=== PATIENT | female | born 1995 | race American Indian/Alaskan Native ===

== ENCOUNTER 2017-07-24 17:54 | Emergency (ER) | payer MEDICAID ==
[2017-07-24 17:54] VITALS: BMI 30.9
[2017-07-24] MEDS ORDERED: Sodium Chloride 0.9% 1,000 ML IV STA (18:25)
--- NOTE | 2017-07-24 18:25 | ED PDOC ---
Arrival/HPI - General Historian: Patient <Emperatriz Dinh A - Last Filed: 07/24/17 23:03> <Carlos A Aparicio - Last Filed: 07/25/17 16:57> - General Time Seen by Provider: 07/24/17 18:17 - History of Present Illness Narrative History of Present Illness (Text): 07/24/17 18:22 21yo morbidly obese female with no PMHx who present with complaint of burning epigastric abdominal pain, nausea, nonbloody/nonbilious vomiting x 1, and diarrhea since this morning. Notes symptoms started after eating breakfast today. She denies previous history of similar symptoms. denies chest pain, fever , chills, urinary symptoms, hematemesis, hematochezia, sick contact, any other complaint. (Emperatriz Dinh A) Past Medical History - Provider Review Nursing Documentation Reviewed: Yes - Infectious Disease Hx of Infectious Diseases: None - Tetanus Immunization Tetanus Immunization: Up to Date - Past Medical History Past Medical History: No Previous - Psychiatric Hx Depression: No Hx Emotional Abuse: No Hx Physical Abuse: No Hx Substance Use: No - Past Surgical History Past Surgical History: No Previous - Suicidal Assessment Feels Threatened In Home Enviroment: No <Emperatriz Dinh A - Last Filed: 07/24/17 23:03> Family/Social History - Physician Review Nursing Documentation Reviewed: Yes Family/Social History: Unknown Family HX Hx Alcohol Use: Yes Hx Substance Use: No Hx Substance Use Treatment: No <Emperatriz Dinh A - Last Filed: 07/24/17 23:03> Allergies/Home Meds <Emperatriz Dinh A - Last Filed: 07/24/17 23:03> <Carlos A Aparicio - Last Filed: 07/25/17 16:57> Allergies/Adverse Reactions: Allergies No Known Allergies Allergy (Verified 07/24/17 18:22) Review of Systems - Physician Review All systems were reviewed & negative as marked: Yes - Review of Systems Constitutional: Normal Eyes: Normal ENT: Normal Respiratory: Normal Cardiovascular: Normal Gastrointestinal: Abdominal Pain, Diarrhea, Nausea, Vomiting. absent: Constipation, Hematochezia, Hematemesis Genitourinary Female: Normal Musculoskeletal: Normal Skin: Normal Neurological: Normal Endocrine: Normal Hemo/Lymphatic: Normal Psychiatric: Normal <Emperatriz Dinh A - Last Filed: 07/24/17 23:03> Physical Exam Vital Signs Reviewed: Yes Temperature: Afebrile Blood Pressure: Normal Pulse: Regular Respiratory Rate: Normal Appearance: Positive for: Well-Appearing, Non-Toxic, Comfortable Pain Distress: None Mental Status: Positive for: Alert and Oriented X 3 - Systems Exam Head: Present: Atraumatic, Normocephalic Pupils: Present: PERRL Extroacular Muscles: Present: EOMI Conjunctiva: Present: Normal Mouth: Present: Moist Mucous Membranes Neck: Present: Normal Range of Motion Respiratory/Chest: Present: Clear to Auscultation, Good Air Exchange. No: Respiratory Distress, Accessory Muscle Use Cardiovascular: Present: Regular Rate and Rhythm, Normal S1, S2. No: Murmurs Abdomen: Present: Tenderness (Epigastric), Normal Bowel Sounds, Other (Soft). No: Distention, Peritoneal Signs, Rebound, Guarding, McBurney's Point Tender, Rovsing's Sign Present Back: Present: Normal Inspection Upper Extremity: Present: Normal Inspection. No: Cyanosis, Edema Lower Extremity: Present: Normal Inspection. No: Edema Neurological: Present: GCS=15, CN II-XII Intact, Speech Normal Skin: Present: Warm, Dry, Normal Color. No: Rashes Psychiatric: Present: Alert, Oriented x 3, Normal Insight, Normal Concentration <Emperatriz Dinh A - Last Filed: 07/24/17 23:03> Vital Signs Temp Pulse Resp BP Pulse Ox 07/24/17 23:02 83 16 126/84 100 07/24/17 21:35 87 16 139/79 97 07/24/17 18:21 97.4 F L 98 H 18 145/97 H 100 Medical Decision Making <Emperatriz Dinh A - Last Filed: 07/24/17 23:03> <Carlos A Aparicio - Last Filed: 07/25/17 16:57> ED Course and Treatment: 07/24/17 23:04 PT presented for stated history. On r evaluation s/p medication was given, she states her pain improved. Lab noted leukocytosis which is likely viral enteritis. Elevated BS was also noted. PT denied history of DM. Repeat FS was 160 after hydration and Insulin was given. She have a PMD and was admitted to f/ u wit her PMD for further evaluation. Rx of Metformin 500mg, pepcid and Zofran was given. She was Advised to follow BRAT diet and TRT ED for any new or worsening symptoms. (Emperatriz Dinh) - Lab Interpretations Lab Results: 07/24/17 18:50 07/24/17 18:50 Lab Results 07/24/17 18:50: Sodium 136, Potassium 4.4, Chloride 99, Carbon Dioxide 27, Anion Gap 14, BUN 13, Creatinine 0.7, Est GFR ( Amer) > 60, Est GFR (Non- Af Amer) > 60, Random Glucose 318 H* D, Calcium 9.5, Total Bilirubin 0.7, AST 34 , ALT 43, Alkaline Phosphatase 74, Total Protein 7.9, Albumin 4.0, Globulin 3.9 , Albumin/Globulin Ratio 1.0 L, Lipase 186 07/24/17 18:50: PT 11.4, INR 1.04, APTT 27.8 07/24/17 18:50: WBC 13.0 H, RBC 4.85, Hgb 12.9, Hct 38.6, MCV 79.6 L, MCH 26.6, MCHC 33.4, RDW 13.5, Plt Count 275, MPV 9.3, Gran % 77.7 H, Lymph % (Auto) 12.2 L, [place] % (Auto) 8.4 H, Eos % (Auto) 1.5, Baso % (Auto) 0.2, Gran # 10.09 H, Lymph # 1.6, [place] # 1.1 H, Eos # 0.2, Baso # 0.03 - Medication Orders Current Medication Orders: Discontinued Medications Famotidine (Pepcid) 20 mg IVP STAT STA Stop: 07/24/17 18:26 Last Admin: 07/24/17 19:07 Dose: 20 mg IVP Administration Document 07/24/17 19:07 OCS (Rec: 07/24/17 19:16 OCS [id number]) Charges for Administration # of IVP Administrations 1 Sodium Chloride (Sodium Chloride 0.9%) 1,000 mls @ 1,000 mls/hr IV .Q1H STA Stop: 07/24/17 19:24 Last Admin: 07/24/17 19:16 Dose: 1,000 mls/hr eMAR Start Stop Document 07/24/17 19:16 OCS (Rec: 07/24/17 19:16 OCS [id number]) Intravenous Solution Start Date 07/24/17 Start Time 19:00 End Date 07/24/17 End time 20:00 Total Infusion Time 60 Insulin Human Regular (Humulin R Med) 7 units IV ONCE STA PRN Reason: Protocol Stop: 07/24/17 20:08 Last Admin: 07/24/17 20:29 Dose: 7 units eMAR Start Stop Document 07/24/17 20:29 OCS (Rec: 07/24/17 20:29 OCS [id number]) Intravenous Solution Start Date 07/24/17 Start Time 20:29 MAR Blood Glucose Document 07/24/17 20:29 OCS (Rec: 07/24/17 20:29 [id number] Blood Glucose Finger Stick Blood Glucose (70-120) 318 Ondansetron HCl (Zofran Inj) 4 mg IVP STAT STA Stop: 07/24/17 18:26 Last Admin: 07/24/17 19:16 Dose: 4 mg IVP Administration Document 07/24/17 19:16 OCS (Rec: 07/24/17 19:17 OCS [id number]) Charges for Administration # of IVP Administrations 1 - PA / COMPLIANCE DIRECTOR / Resident Statement / has reviewed & agrees with the documentation as recorded. <Carlos A Aparicio - Last Filed: 07/25/17 16:57> Disposition/Present on Arrival - Present on Arrival Any Indicators Present on Arrival: No History of DVT/PE: No History of Uncontrolled Diabetes: No Urinary Catheter: No History Surgical Site Infection Following: None - Disposition Have Diagnosis and Disposition been Completed?: Yes Disposition Time: 21:50 Patient Plan: Discharge <Emperatriz Dinh - Last Filed: 07/24/17 23:03> <Carlos A Aparicio - Last Filed: 07/25/17 16:57> - Disposition Diagnosis: Abdominal pain, Diabetes mellitus, new onset, Vomiting Disposition: HOME/ ROUTINE Condition: STABLE Discharge Instructions (ExitCare): Abdominal Pain (ED), Hyperglycemia, Non- Diabetic (ED) Additional Instructions: Follow up with your doctor Follow BRAT diet (Banana, plain rice, tea, crackers) Return to ED for any new or worsening symptoms Prescriptions: Famotidine [Pepcid] 20 mg PO BID #20 tab metFORMIN [glucOPHAGE] 500 mg PO BID #20 tab Ondansetron ODT [Zofran ODT] 4 mg PO Q6 #7 odt Referrals: Yeni Mario, [Primary Care Provider] - [place] up [place] [facility] [place] [facility] [place] - Follow up with primary Forms: [employer] (Latvian), WORK NOTE
[2017-07-24 18:54] VITALS: TEMP 97.4
[2017-07-24 19:07] LABS: BASO # 0.03 K/mm3 (0.0-2.0); BASO % 0.2 % (0.0-3.0); EOS # 0.2 (0.0-0.7); EOS % 1.5 % (1.5-5.0); GRAN # 10.09 (1.4-6.5); GRAN % 77.7 % (50.0-68.0); HEMATOCRIT 38.6 % (36.0-48.0); LYMPH # 1.6 (1.2-3.4); LYMPH % 12.2 % (22.0-35.0); MEAN CELL VOLUME 79.6 fl (80.0-105.0); MEAN CORPUSCULAR HEMOGLOBIN 26.6 pg (25.0-35.0); MEAN CORPUSCULAR HGB CONC 33.4 g/dl (31.0-37.0); MEAN PLATELET VOLUME 9.3 fl (7.0-11.0); MONO # 1.1 (0.1-0.6); MONO % 8.4 % (1.0-6.0); RED CELL DISTRIBUTION WIDTH 13.5 % (11.5-14.5)
[2017-07-24 19:26] LABS: INR 1.04 (0.93-1.08); PARTIAL THROMBOPLASTIN TIME 27.8 Seconds (25.1-36.5)
[2017-07-24 19:56] LABS: BLOOD UREA NITROGEN 13 mg/dL (7-21); CALCIUM 9.5 mg/dL (8.4-10.5); CARBON DIOXIDE 27 mmol/L (21-33); CHLORIDE 99 mmol/L (98-107); GFR AFRICAN-AMERICAN > 60; POTASSIUM 4.4 mmol/L (3.6-5.0); SODIUM 136 mmol/L (132-148)
[2017-07-24 19:57] LABS: ALKALINE PHOSPHATASE 74 U/L (38-126); ALT/SGPT 43 U/L (7-56); AST/SGOT 34 U/L (14-36); BILIRUBIN,TOTAL 0.7 mg/dL (0.2-1.3); LIPASE 186 U/L (23-300); TOTAL PROTEIN 7.9 g/dL (5.8-8.3)
[2017-07-24 19:59] LABS: GLUCOSE,RANDOM 318 mg/dL (70-110)
[2017-07-24] MEDS ORDERED: Insulin Reg-MEDIUM-Coverage IV STA (20:07)
[2017-07-24] MEDS ORDERED: Insulin Regular 1 UNITS/0.01 ML ML ONE (20:24)
[2017-07-24 21:40] VITALS: RESP 16
[2017-07-24 23:03] VITALS: BP 126/84; PULSE 83; O2SAT 100
== END 2017-07-24 23:07 | disposition home or self-care (01) ==
LOC: ED 17:54
DX: E11.9 Type 2 diabetes mellitus without complications (principal); R11.10 Vomiting, unspecified; R10.9 Unspecified abdominal pain
CPT/HCPCS: 80053; 82948; 83690; 85025; 85610; 85730; 96361; 96374; 96375; 99284; J2405; J7040

== ENCOUNTER 2018-04-16 15:34 | Emergency (ER) | payer MEDICAID ==
[2018-04-16 15:34] VITALS: BMI 30.9
[2018-04-16 15:46] VITALS: RESP 18
--- NOTE | 2018-04-16 16:18 | ED PDOC ---
Arrival/HPI - History of Present Illness Time/Duration: < week Symptom Onset: Gradual Symptom Course: Unchanged Quality: Other (Sharp) Activities at Onset: Rest <Emerson Maguire - Last Filed: 04/16/18 18:01> <Suhas Alberto - Last Filed: 04/21/18 17:47> - General Chief Complaint: ENT Problem Time Seen by Provider: 04/16/18 15:37 - History of Present Illness Narrative History of Present Illness (Text): 04/16/18 16:03 PGY-[address] Alberto Ms. Branch is a 22 year old with history of recent DM diagnosis who presents with ear pain and missed period. Patient reports that she has had intermittent ear pains for about one week along the internal surface of her left ear. Pt denies having any sinus congestion, fever, cough. She denies any recent swimming or sick contacts. In addition, patient has been having sharp lower abdominal pain for about the past two days. She denies any bleeding or discharge. Her last period was from January 17-January 21. She denies any bowel or bladder symptoms including constipation, diarrhea, nausea, vomiting, dysuria, increased frequency, and hematuria. Patient had a positive test in the ED, was unaware of her until this time. Her first was an uncomplicated vaginal . The patient was diagnosed with DM about 2-3 months ago at [facility] ED and was prescribed Metformin, but has not taken any medication. (Emerson Maguire) Past Medical History - Provider Review Nursing Documentation Reviewed: Yes - Infectious Disease Hx of Infectious Diseases: None - Tetanus Immunization Tetanus Immunization: Up to Date - Past Medical History Past Medical History: No Previous - Psychiatric Hx Depression: No Hx Emotional Abuse: No Hx Physical Abuse: No Hx Substance Use: No - Past Surgical History Past Surgical History: No Previous - Suicidal Assessment Feels Threatened In Home Enviroment: No <Emerson Maguire - Last Filed: 04/16/18 18:01> Family/Social History Family/Social History: No Known Family HX Smoking Status: Never Smoked Hx Alcohol Use: Yes Frequency of alcohol use: Socially Hx Substance Use: No Hx Substance Use Treatment: No <Emerson Maguire - Last Filed: 04/16/18 18:01> Allergies/Home Meds <Emerson Maguire - Last Filed: 04/16/18 18:01> <Suhas Alberto - Last Filed: 04/21/18 17:47> Allergies/Adverse Reactions: Allergies No Known Allergies Allergy (Verified 04/16/18 15:43) Review of Systems - Review of Systems Constitutional: Normal. absent: Fatigue, Fevers Eyes: Normal. absent: Vision Changes, Eye Pain ENT: absent: Hearing Changes, Sore Throat, Rhinorrhea, Sinus Congestion Respiratory: Normal. absent: SOB, Cough, Wheezing Cardiovascular: Normal. absent: Chest Pain, Edema Gastrointestinal: Abdominal Pain (+Lower abdominal pain). absent: Constipation , Diarrhea, Nausea, Vomiting, Hematochezia Genitourinary Female: Other (+FDLMP January 17). absent: Dysuria, Frequency, Hematuria, Vaginal Bleeding, Vaginal Discharge Musculoskeletal: absent: Arthralgias, Back Pain Skin: Normal. absent: Rash, Pruritis Neurological: Headache (+occasional headaches). absent: Dizziness, Speech Changes Endocrine: absent: Polyuria, Polydipsia <Emerson Maguire - Last Filed: 04/16/18 18:01> Physical Exam Vital Signs Reviewed: Yes Temperature: Afebrile Blood Pressure: Normal Pulse: Regular Respiratory Rate: Normal Appearance: Positive for: Well-Appearing, Comfortable. No: Non-Toxic Pain Distress: Mild Mental Status: Positive for: Alert and Oriented X 3 - Systems Exam Head: Present: Atraumatic, Normocephalic Pupils: Present: PERRL. No: Sluggish Extroacular Muscles: Present: EOMI Conjunctiva: Present: Normal. No: Injected, Icteric Ears: Present: Normal, NORMAL TM, Normal Canal. No: Erythema, TM Bulging, Fluid , TM Perf Mouth: Present: Moist Mucous Membranes, Normal Lips, Normal Tounge, Normal Teeth Pharnyx: Present: Normal. No: ERYTHEMA, EXUDATE, Peritonsilar Swelling Nose (External): Present: Atraumatic. No: Abrasion, Contusion Neck: Present: Normal Range of Motion. No: JVD Respiratory/Chest: Present: Clear to Auscultation, Good Air Exchange. No: Respiratory Distress, Accessory Muscle Use, Wheezes, Decreased Breath Sounds, Rhonchi Cardiovascular: Present: Regular Rate and Rhythm, Normal S1, S2. No: Murmurs Abdomen: Present: Normal Bowel Sounds. No: Tenderness, Distention, Peritoneal Signs, Rebound, Guarding Upper Extremity: Present: Normal Inspection, NORMAL PULSES. No: Cyanosis, Edema , Tenderness, Swelling Lower Extremity: Present: Normal Inspection, NORMAL PULSES. No: Edema, Cyanosis , Tenderness, Swelling, Erythema, Deformity Neurological: Present: GCS=15, CN II-XII Intact, Speech Normal, Motor Func Grossly Intact Skin: Present: Warm, Dry, Normal Color. No: Rashes Psychiatric: Present: Alert, Oriented x 3, Normal Insight, Normal Concentration <Emerson Maguire - Last Filed: 04/16/18 18:01> - Systems Exam Genitourinary/Pelvic Exam: Present: Normal External Genitalia, Cervical os Closed. No: Vaginal Discharge, Vaginal Bleeding, Vaginal Lesions, Adenexal Tenderness, Adenexal Mass, Cervical Motion Tendernes, Odor <Suhas Alberto - Last Filed: 04/21/18 17:47> Vital Signs Temp Pulse Resp BP Pulse Ox 04/16/18 18:13 98.6 F 72 18 118/79 99 04/16/18 17:34 98.6 F 78 18 123/78 98 04/16/18 15:41 98.3 F 100 H 18 135/82 99 Medical Decision Making <Emerson Maguire - Last Filed: 04/16/18 18:01> <Suhas Alberto - Last Filed: 04/21/18 17:47> ED Course and Treatment: 04/16/18 16:42 1) Ear pain, Non-infectious * Does not appear to be infected based on physical findings and clinical presentation 2) * POC urine HCG test was positive * UA * CBC w dif * CMP * Type and screen * Beta quant 04/16/18 18:06 * Nitrofurantoin 100mg PO stat for abdominal pain in (Emerson Maguire) 04/16/18 16:49 Patient is a 22 year old female presenting to the Emergency department complaining of ear pain and a missed menstrual period. Patient Seen With Resident: In agreement with resident note which contains more details about the patient. Patient was seen and evaluated with resident. Came up with plan and treatment together. Patient's ear did not have OM or OE. There a possible pimple in the ear canal that does not need abx. TVSono complted and explained to patient. Also UA showed UTI so will tx with Nitrofurantoin. Patient was advised to make sure she follow up with OBGYN and to return to the ED if symptoms worsen or any other concern. (Suhas Alberto) - Lab Interpretations Microbiology Results: Microbiology Results 04/16/18 19:21 Urine,Clean Catch Urine Culture - Final No Growth (<1,000 CFU/ML) Lab Results: 04/16/18 16:40 04/16/18 16:40 Lab Results 04/16/18 18:00: Blood Type Confirm A POSITIVE 04/16/18 16:40: Beta HCG, Quant 87869.00 H 04/16/18 16:40: Sodium 138, Potassium 3.8, Chloride 103, Carbon Dioxide 25, Anion Gap 13, BUN 7, Creatinine 0.7, Est GFR ( Amer) > 60, Est GFR (Non- Af Amer) > 60, Random Glucose 167 H, Calcium 9.1, Total Bilirubin 0.2, AST 16, ALT 11, Alkaline Phosphatase 50, Total Protein 7.1, Albumin 3.4, Globulin 3.7, Albumin/Globulin Ratio 0.9 L 04/16/18 16:40: Urine Color Yellow, Urine Appearance Clear, Urine pH 6.0, Ur Specific [place] >= 1.030, Urine Protein >=300 H, Urine Glucose (UA) Negative, Urine Ketones Negative, Urine Blood Trace-lysed H, Urine Nitrate Negative, Urine Bilirubin Negative, Urine Urobilinogen 0.2, Ur Leukocyte Esterase Negative , Urine RBC 0 - 2, Urine WBC 5 - 10, Ur Epithelial Cells 6 - 8, Amorphous Sediment Few, Urine Bacteria Occ 04/16/18 16:40: WBC 8.5 D, RBC 4.29, Hgb 11.6 L, Hct 33.5 L, MCV 78.1 L, MCH 27.0, MCHC 34.6, RDW 12.6, Plt Count 305, MPV 8.9, Gran % 65.2, Lymph % (Auto) 27.9, [place] % (Auto) 5.8, Eos % (Auto) 0.9 L, Baso % (Auto) 0.2, Gran # 5.50, Lymph # (Auto) 2.4, [place] # (Auto) 0.5, Eos # (Auto) 0.1, Baso # (Auto) 0.02 04/16/18 16:40: Blood Type A POSITIVE, Antibody Screen Negative, BBK History Checked No verified bt - RAD Interpretation Narrative RAD Interpretations (Text): 04/16/18 18:01 US Transvaginal: Single live intrauterine at 11 weeks. (Emerson Maguire) Radiology Orders: 04/16/18 16:18 OB TRANSVAGINAL [US] Stat - Medication Orders Current Medication Orders: Discontinued Medications Nitrofurantoin Macrocrystals (Macrobid) 100 mg PO STAT STA PRN Reason: Protocol Stop: 04/16/18 17:59 Last Admin: 04/16/18 18:07 Dose: 100 mg <Emerson Maguire - Last Filed: 04/16/18 18:01> - PA / VOCATIONAL DIRECTOR / Resident Statement MD/DO has reviewed & agrees with the documentation as recorded. MD/ has examined the patient and agrees with the treatment plan. - Scribe Statement The provider has reviewed the documentation as recorded by the Scribe <Suhas Alberto - Last Filed: 04/21/18 17:47> - Scribe Statement Lorna Zacarias All medical record entries made by the Scribe were at my direction and personally dictated by me. I have reviewed the chart and agree that the record accurately reflects my personal performance of the history, physical exam, medical decision making, and the department course for this patient. I have also personally directed, reviewed, and agree with the discharge instructions and disposition. (Suhas Alberto) Disposition/Present on Arrival - Present on Arrival History of DVT/PE: No History of Uncontrolled Diabetes: No Urinary Catheter: No History of Decub. Ulcer: No History Surgical Site Infection Following: None <Emerson Maguire - Last Filed: 04/16/18 18:01> - Present on Arrival Any Indicators Present on Arrival: No - Disposition Have Diagnosis and Disposition been Completed?: Yes Disposition Time: 18:13 Patient Plan: Discharge <Suhas Alberto - Last Filed: 04/21/18 17:47> - Disposition Diagnosis: , Threatened , UTI (urinary tract infection) Disposition: HOME/ ROUTINE Condition: IMPROVED Discharge Instructions (ExitCare): Urinary Tract Infections in Adults, - The Second Month Additional Instructions: LELA BRANCH, thank you for letting us take care of you today. Your provider was Suhas Alberto DO and you were treated for , Ear Pain, UTI. The emergency medical care you received today was directed at your acute symptoms. If you were prescribed any medication, please fill it and take as directed. It may take several days for your symptoms to resolve. Return to the Emergency Department if your symptoms worsen, do not improve, or if you have any other problems. Please contact your doctor or call one of the physicians/clinics you have been referred to that are listed on the Patient Visit Information form that is included in your discharge packet. Bring any paperwork you were given at discharge with you along with any medications you are taking to your follow up visit. Our treatment cannot replace ongoing medical care by a primary care provider outside of the emergency department. Thank you for allowing the [facility] team to be part of your care today. If you had an X-Ray or CT scan: A Radiologist will review the ED reading if any change in treatment is needed we will contact you. If you had a blood, urine, or wound culture: It will take several days for the results, if any change in treatment is needed we will contact you. If you had an STI test: It will take 48 hours for the results. Please call after 1 week if you have not heard back. Prescriptions: Nitrofurantoin Macrocrystals [Macrobid] 100 mg PO BID #10 cap Forms: [employer] ([place]), WORK NOTE
[2018-04-16 17:12] LABS: ALB/GLOB RATIO 0.9 (1.1-1.8); ALBUMIN 3.4 g/dL (3.0-4.8); ALT/SGPT 11 U/L (7-56); AST/SGOT 16 U/L (14-36); BLOOD UREA NITROGEN 7 mg/dL (7-21); CALCIUM 9.1 mg/dL (8.4-10.5); GFR NON-AFRICAN AMERICAN > 60
[2018-04-16 17:16] LABS: BASO # 0.02 K/mm3 (0.0-2.0); BASO % 0.2 % (0.0-3.0); EOS # 0.1 (0.0-0.7); EOS % 0.9 % (1.5-5.0); GRAN # 5.5 (1.4-6.5); GRAN % 65.2 % (50.0-68.0); HEMOGLOBIN 11.6 g/dL (12.0-16.0); LYMPH # 2.4 (1.2-3.4); LYMPH % 27.9 % (22.0-35.0); MEAN CELL VOLUME 78.1 fl (80.0-105.0); MEAN CORPUSCULAR HGB CONC 34.6 g/dl (31.0-37.0); MEAN PLATELET VOLUME 8.9 fl (7.0-11.0); MONO # 0.5 (0.1-0.6); MONO % 5.8 % (1.0-6.0); RBC 4.29 10^6/uL (3.5-6.1); RED CELL DISTRIBUTION WIDTH 12.6 % (11.5-14.5); WHITE BLOOD COUNT 8.5 10^3/ul (4.5-11.0)
[2018-04-16 17:17] LABS: URINE APPEARANCE CLEAR (CLEAR); URINE BILIRUBIN NEGATIVE (NEGATIVE); URINE BLOOD TRACE-LYSED (NEGATIVE); URINE COLOR YELLOW (YELLOW); URINE GLUCOSE (UA) NEGATIVE (NEGATIVE); URINE LEUKOCYTE ESTERASE NEGATIVE Leu/uL (NEGATIVE); URINE PROTEIN >=300 mg/dL (<30 mg/dL); URINE UROBILINOGEN 0.2 E.U./dL (<1 E.U./dL)
[2018-04-16 17:45] LABS: URINE RBC 0 - 2 /hpf (0-2)
[2018-04-16 17:46] LABS: URINE AMORPHOUS SEDIMENT FEW; URINE BACTERIA OCC (NEG)
--- NOTE | 2018-04-16 17:48 | US ---
Date of service: 04/16/2018 PROCEDURE: OB Pelvic Ultrasound HISTORY: Positive urine test COMPARISON: None available. FINDINGS: UTERUS: Single Live intrauterine gestation. CRL measures 5.1 cm equivalent to 11 weeks and 6 days gestatioin Gestational sac diameter measures 5.1 cm equivalent to 11 weeks and 0 day gestation age (Ultrasound estimated): Eleven weeks and 3 days Date of delivery (Ultrasound estimated) : 11/02/2018 Heart rate: 160 bpm. Ijeoma-gestational hemorrhage: None. Uterus measures 10.3 x 7.1 x 8.6 cm. Anteverted. No mass Placenta is posterior. CERVIX: Long and closed. No cervical abnormality seen. RIGHT OVARY: Measures 2.6 x 1.8 x 1.7 cm. No mass. Normal flow. LEFT OVARY: Measures 2.3 x 1.7 x 2.1 cm. No mass. Normal flow. FREE FLUID: None. OTHER FINDINGS: None. IMPRESSION: Single live intrauterine gestation with mean gestational age of 11 weeks and 3 days. The estimated date of delivery by ultrasound is 11/02/2018.
[2018-04-16 18:13] VITALS: TEMP 98.6
[2018-04-16 18:14] VITALS: BP 118/79; PULSE 72; O2SAT 99
== END 2018-04-16 18:13 | disposition home or self-care (01) ==
LOC: ED 15:34
DX: O20.0 Threatened abortion (principal); O23.41 Unspecified infection of urinary tract in pregnancy, first trimester; Z3A.11 11 weeks gestation of pregnancy

== ENCOUNTER 2018-04-23 11:57 | Emergency (ER) | payer MEDICAID ==
[2018-04-23 11:57] VITALS: BMI 30.9
[2018-04-23 12:12] VITALS: RESP 18; O2SAT 100
--- NOTE | 2018-04-23 12:23 | ED PDOC ---
Arrival/HPI - General Chief Complaint: ENT Problem Time Seen by Provider: 04/23/18 12:00 Historian: Patient - History of Present Illness Narrative History of Present Illness (Text): 04/23/18 12:16 22 year old female, whose past medical history includes DM, A0, who presents to the ED complaining of left ear pain x 1 week. Patient notes pain started radiating to neck on the left side yesterday. . Patient describes the pain as shooting and sharp. She started to have tooth pain to her left posterior tooth. Patient denies any fever, chills, drainage, pain with swallowing, or any other complaints. PMD: None Time/Duration: 1 week Symptom Onset: Gradual Symptom Course: Unchanged Activities at Onset: Light Context: Home Past Medical History - Provider Review Nursing Documentation Reviewed: Yes - Infectious Disease Hx of Infectious Diseases: None - Tetanus Immunization Tetanus Immunization: Up to Date - Past Medical History Past Medical History: No Previous - Endocrine/Metabolic Hx Diabetes Mellitus Type 2: Yes - Psychiatric Hx Depression: No Hx Emotional Abuse: No Hx Physical Abuse: No Hx Substance Use: No - Past Surgical History Past Surgical History: No Previous - Suicidal Assessment Feels Threatened In Home Enviroment: No Family/Social History - Physician Review Nursing Documentation Reviewed: Yes Family/Social History: Unknown Family HX Smoking Status: Never Smoked Hx Alcohol Use: Yes Frequency of alcohol use: Socially Hx Substance Use: No Hx Substance Use Treatment: No Allergies/Home Meds Allergies/Adverse Reactions: Allergies No Known Allergies Allergy (Verified 04/23/18 12:12) Review of Systems - Physician Review All systems were reviewed & negative as marked: Yes - Review of Systems Constitutional: Normal Eyes: Normal ENT: Other (left ear and tooth pain) Respiratory: Normal. absent: SOB, Cough Cardiovascular: Normal. absent: Chest Pain Gastrointestinal: Normal. absent: Abdominal Pain Genitourinary Female: Normal. absent: Dysuria, Frequency Musculoskeletal: absent: Back Pain, Neck Pain Skin: Normal. absent: Rash Neurological: Normal. absent: Headache, Dizziness Endocrine: Normal Hemo/Lymphatic: Normal Psychiatric: Normal Physical Exam Vital Signs Reviewed: Yes Vital Signs Temp Pulse Resp BP Pulse Ox 04/23/18 13:07 100 04/23/18 13:04 98.3 F 82 18 138/84 100 04/23/18 12:18 149/95 H 04/23/18 12:10 97.8 F 74 18 100 Temperature: Afebrile Pulse: Regular Respiratory Rate: Normal Appearance: Positive for: Well-Appearing, Non-Toxic, Comfortable Pain Distress: None Mental Status: Positive for: Alert and Oriented X 3 - Systems Exam Head: Present: Atraumatic, Normocephalic Pupils: Present: PERRL Extroacular Muscles: Present: EOMI Conjunctiva: Present: Normal Ears: Present: NORMAL TM, Normal Canal, Other (tenderness to left inner canal). No: Erythema, TM Bulging, Fluid, TM Perf Mouth: Present: Moist Mucous Membranes. No: Normal Teeth (tenderness left posterior tooth; poor dentition) Neck: Present: Normal Range of Motion, Trachea Midline. No: Paraspinal Tenderness, JVD, Lymphadenopathy, Bruit Respiratory/Chest: Present: Clear to Auscultation, Good Air Exchange. No: Respiratory Distress, Accessory Muscle Use Cardiovascular: Present: Regular Rate and Rhythm, Normal S1, S2. No: Murmurs Abdomen: No: Tenderness, Distention, Peritoneal Signs Back: Present: Normal Inspection Upper Extremity: Present: Normal Inspection. No: Cyanosis, Edema Lower Extremity: Present: Normal Inspection. No: Edema Neurological: Present: GCS=15, CN II-XII Intact, Speech Normal, Motor Func Grossly Intact, Normal Sensory Function, Normal Cerebellar Funct, Gait Normal Skin: Present: Warm, Dry, Normal Color. No: Rashes Psychiatric: Present: Alert, Oriented x 3, Normal Insight, Normal Concentration Medical Decision Making ED Course and Treatment: 04/23/18 12:25 Impression: 22 year old female presents to the ED complaining left ear pain that radiates to the neck and tooth pain Plan: -- Augmentin PO BID x 2 weeks. -- Tylenol PRN for pain. Took Tylenol 3 hours ago so will take next dose when she gets home. -- Patient is currently . She denies any abdominal pain, vaginal bleeding, back pain or urinary symptoms. No vaginal discharge. -- I gave her discharge instructions to f/u with Dr. Edge at the clinic in 2 days and to return to the ED if symptoms worsen, fever, weakness, or any other concern. She was advised to make sure she takes abx as instructed and to f/u with ENT and Dental for further evaluation. - Medication Orders Current Medication Orders: Discontinued Medications Amoxicillin/Clavulanate Potassium (Augmentin 875 Mg-125 Mg Tab) 1 tab PO STAT STA PRN Reason: Protocol Stop: 04/23/18 12:46 Last Admin: 04/23/18 12:59 Dose: 1 tab - Scribe Statement The provider has reviewed the documentation as recorded by the Scribe Jaja Cheng All medical record entries made by the Scribe were at my direction and personally dictated by me. I have reviewed the chart and agree that the record accurately reflects my personal performance of the history, physical exam, medical decision making, and the department course for this patient. I have also personally directed, reviewed, and agree with the discharge instructions and disposition. Disposition/Present on Arrival - Present on Arrival Any Indicators Present on Arrival: No History of DVT/PE: No History of Uncontrolled Diabetes: No Urinary Catheter: No History of Decub. Ulcer: No History Surgical Site Infection Following: None - Disposition Have Diagnosis and Disposition been Completed?: Yes Diagnosis: Pain, dental, Ear pain Disposition: HOME/ ROUTINE Disposition Time: 13:07 Patient Plan: Discharge Condition: GOOD Discharge Instructions (ExitCare): Ear Infections (Otitis Media), Dental Pain ( DC) Additional Instructions: LELA WELLS, thank you for letting us take care of you today. Your provider was Suhas Alberto DO and you were treated for Ear Pain, Tooth Pain. The emergency medical care you received today was directed at your acute symptoms. If you were prescribed any medication, please fill it and take as directed. It may take several days for your symptoms to resolve. Return to the Emergency Department if your symptoms worsen, do not improve, or if you have any other problems. Follow up with ENT and Dental Clinic. [facility] is located on [address] [place] [address]; phone [phone] Please contact your doctor or call one of the physicians/clinics you have been referred to that are listed on the Patient Visit Information form that is included in your discharge packet. Bring any paperwork you were given at discharge with you along with any medications you are taking to your follow up visit. Our treatment cannot replace ongoing medical care by a primary care provider outside of the emergency department. Thank you for allowing the [facility] team to be part of your care today. If you had an X-Ray or CT scan: A Radiologist will review the ED reading if any change in treatment is needed we will contact you. If you had a blood, urine, or wound culture: It will take several days for the results, if any change in treatment is needed we will contact you. If you had an STI test: It will take 48 hours for the results. Please call after 1 week if you have not heard back. Prescriptions: Amoxicillin/Clavulanate [Augmentin 875 MG-125 MG] 1 tab PO BID #20 tab Referrals: [facility] [Outside] - Follow up with primary Tyler Sloan DO [Staff Provider] - Follow up with primary Samaria Edge MD [Medical Doctor] - Follow up with primary Forms: [facility] (Lithuanian), WORK NOTE
[2018-04-23] MEDS ORDERED: Amoxicillin-Clav 875-125 mg Tab PO STA (12:45)
[2018-04-23 13:06] VITALS: BP 138/84; PULSE 82; TEMP 98.3
== END 2018-04-23 13:07 | disposition home or self-care (01) ==
LOC: ED 11:57
DX: H92.02 Otalgia, left ear (principal); K08.89 Other specified disorders of teeth and supporting structures; E11.9 Type 2 diabetes mellitus without complications